=== PATIENT | female | born 1955 | race Caucasian/White ===

== ENCOUNTER 2017-11-27 16:47 | Emergency (ER) | payer OTHER ==
[2016-09-27 09:13] VITALS: Wt 91.6 kg
[~2017-11-27 16:47] MED LIST: ACE325 PO; AMO500 PO; AMOX-559 PO; AMOX1TAB9 PO; ASPI-757 PO; ATOR10TA24 PO; CELE-1 PO; CINN500C12 PO; CIP500 PO; CYCL10TA29 PO; DAPA5TAB PO; DEXL30CA5 PO; DOCU-202 PO; DOCU-416 PO; DUL20 PO; DULO30CA35 PO; ESOM40CA42 PO; FLUC150T40 PO; FLUT16SP20 NS; GABA-488 PO; GABA-547 PO; GABA-549 PO; GLIM4TAB49 PO; HCTZ25 PO; HYDR-2966 PO; HYDR-6015 PO; IBU800 PO; LEV500 PO; LEVO-85 PO; LEVO50TA80 PO; LOR5/325 PO; MAGN500C10 PO; MELO7.5O3 PO; METF-410 PO; METF-420 PO; METFORMIN PO; METR-1 PO; METR-159 PO; MULT-1097 PO; OXYB5TAB86 PO; OXYC-865 PO; PANT40TA63 PO; PER PO; POLY17PO25 PO; PRE10 PO; PRE50 PO; SAXA1TBM6 PO; SIMV10TA98 PO; VALA100062 PO; WAR5 PO
--- NOTE | 2017-11-27 16:50 | ER Report ---
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 She reports she was sent over by her chiropractor who has been working on her right shoulder. Denies prior muscle spasms. Denies prior heart attacks. She reports history of high cholesterol controlled by medication. REVIEW OF SYSTEMS: Constitutional: No fever, no chills. Eyes: No discharge. ENT: No sore throat. Cardiovascular: No chest pain, no palpitations. Respiratory: No cough, no shortness of breath. Gastrointestinal: No abdominal pain, no vomiting. Genitourinary: No hematuria. Musculoskeletal: No back pain. Skin: No rashes. Neurological: No headache. (REBECA JOHNSON MD) Allergies: Coded Allergies: latex (Verified Allergy, Unknown, 09/19/16) PT STATES THAT NO LONGER A PROBLEM Home Meds Active Scripts Naproxen (NAPROXEN) 375 Mg Tablet, 375 MG PO TID for PAIN, #20 TAB 0 Refills Prov:HOWARD BENSON MD 11/27/17 Methocarbamol (ROBAXIN-750) 750 Mg Tablet, 1500 MG PO TID for Muscle Relaxant, # 20 TAB 0 Refills Prov:HOWARD BENSON MD 11/27/17 Reported Medications Oxycodone Hcl/Acetaminophen (PERCOCET 5-325 MG TABLET) 1 Each Tablet, 1-2 EACH PO Q6H Y for PAIN, #60 TAB 09/29/16 Dapagliflozin Propanediol (Farxiga) 5 Mg Tablet, PO DAILY 09/19/16 Duloxetine Hcl (CYMBALTA) 30 Mg Capsule.dr, 30 MG PO QDAY, CAP 06/14/16 Atorvastatin Calcium (LIPITOR) 10 Mg Tablet, 1 TAB PO QDAY, TAB 06/14/16 Metformin Hcl (METFORMIN HCL) 500 Mg Tablet, 2 TAB PO BID, TAB 06/14/16 Gabapentin (GABAPENTIN) 300 Mg Capsule, 300 MG PO DAILY Y for PAIN, CAPSULE 06/14/16 Polyethylene Glycol 3350 (MIRALAX) 17 Gm Powd.pack, 17 GM PO PRN Y for CONSTIPATION, PKT 06/14/16 Dexlansoprazole (DEXILANT) 30 Mg , 60 MG PO DAILY 03/12/15 Hydrochlorothiazide (HYDROCHLOROTHIAZIDE) 25 Mg Tablet, 1 TAB PO QDAY TAKE ONE TABLET BY MOUTH EVERY DAY 09/30/14 Levothyroxine Sodium (Levothyroxine Sodium) 50 Mcg Tablet, 50 MCG PO QAM, 0 Refills 08/10/11 Discontinued Reported Medications Multivitamin (ONE DAILY) 1 Each Tablet, 1 EACH PO QDAY 05/13/15 Discontinued Scripts Aspirin (ASPIRIN) 325 Mg Tablet, 325 MG PO QDAY, #30 TAB Prov:MALVIN DAVID MD 09/29/16 Hx Smoking: No Smoking Status: Never Smoker Hx Substance Use Disorder: No Hx Alcohol Use: Yes (REBECA JOHNSON MD) Constitutional Vital Sign - Last 24 Hours 11/27/17 11/27/17 11/27/17 11/27/17 16:47 16:50 16:51 16:52 Temp 99.5 Pulse ??? 98 Resp 14 B/P (MAP) 136/100 (112) 127/88 (101) 127/88 Pulse Ox 97 O2 Delivery Room Air 11/27/17 11/27/17 11/27/17 11/27/17 17:02 17:17 17:32 17:47 Pulse 69 68 68 70 Resp 20 9 17 Pulse Ox 91 91 94 97 11/27/17 11/27/17 11/27/17 18:02 18:08 18:15 Pulse ??? Resp 18 B/P (MAP) 106/76 (86) Pulse Ox 97 O2 Flow Rate 2.0 (HOWARD BENSON MD) Physical Exam General Appearance: The patient is alert, has no immediate need for airway protection and no signs of toxicity. No acute distress Eyes: Pupils equal and round no pallor or injection. ENT, Mouth: Mucous membranes are moist. Respiratory: There are no retractions, lungs are clear to auscultation. Cardiovascular: Regular rate and rhythm. [ ] Gastrointestinal: Abdomen is soft and non tender, no masses, bowel sounds normal. Neurological: Normal Skin: Warm and dry, no rashes. Musculoskeletal: Neck is supple non tender. Extremities are nontender, nonswollen and have full range of motion. Tender and spasm in left deltoid muscle and left supraspinatus muscle and left splenis capitis muscle minimally tender to palpation DIFFERENTIAL DIAGNOSIS: After history and physical exam differential diagnosis was considered for acute coronary syndrome, muscle spasm no signs of PE dissection or other dangerous pathology (REBECA JOHNSON MD) Medical Decision Making Data Points Result Diagram: 11/27/17 1659 11/27/17 1659 Laboratory Hematology Test 11/27/17 16:59 Red Blood Count 5.57 M/uL (4.17-5.56) Mean Corpuscular Volume 86.2 fL (80.0-96.0) Mean Corpuscular Hemoglobin 30.2 pg (26.0-33.0) Mean Corpuscular Hemoglobin Concent 35.1 g/dL (32.0-36.0) Red Cell Distribution Width 13.5 % (11.5-14.5) Mean Platelet Volume 9.7 fL (7.2-11.1) Neutrophils (%) (Auto) 57.9 % (39.4-72.5) Lymphocytes (%) (Auto) 32.0 % (17.6-49.6) Monocytes (%) (Auto) 7.6 % (4.1-12.4) Eosinophils (%) (Auto) 1.4 % (0.4-6.7) Basophils (%) (Auto) 1.1 % (0.3-1.4) Nucleated RBC Relative Count (auto) 0.0 /100WBC Neutrophils # (Auto) 3.8 K/uL (2.0-7.4) Lymphocytes # (Auto) 2.1 K/uL (1.3-3.6) Monocytes # (Auto) 0.5 K/uL (0.3-1.0) Eosinophils # (Auto) 0.1 K/uL (0.0-0.5) Basophils # (Auto) 0.1 K/uL (0.0-0.1) Nucleated RBC Absolute Count (auto) 0.00 K/uL Sodium Level 136 mmol/L (137-145) Potassium Level 3.3 mmol/L (3.5-5.0) Chloride Level 98 mmol/L (98-107) Carbon Dioxide Level 26 mmol/L (22-31) Blood Urea Nitrogen 20 mg/dl (7-18) Creatinine 0.70 mg/dl (0.52-1.04) Glomerular Filtration Rate Calc > 60.0 Random Glucose 159 mg/dl (75-110) Calcium Level 9.7 mg/dl (8.4-10.2) Total Bilirubin 0.8 mg/dl (0.2-1.3) Aspartate Amino Transf (AST/SGOT) 21 U/L (0-35) Alanine Aminotransferase (ALT/SGPT) 28 U/L (0-56) Alkaline Phosphatase 91 U/L (0-126) Troponin I < 0.012 ng/ml B-Type Natriuretic Peptide < 5 pg/ml (0-100) Total Protein 7.8 gm/dl (6.3-8.2) Albumin 4.1 g/dl (3.5-5.0) Chemistry Test 11/27/17 16:59 White Blood Count 6.5 k/uL (4.5-11.0) Red Blood Count 5.57 M/uL (4.17-5.56) Hemoglobin 16.8 g/dL (12.0-16.0) Hematocrit 48.0 % (34.0-47.0) Mean Corpuscular Volume 86.2 fL (80.0-96.0) Mean Corpuscular Hemoglobin 30.2 pg (26.0-33.0) Mean Corpuscular Hemoglobin Concent 35.1 g/dL (32.0-36.0) Red Cell Distribution Width 13.5 % (11.5-14.5) Platelet Count 195 K/uL (150-450) Mean Platelet Volume 9.7 fL (7.2-11.1) Neutrophils (%) (Auto) 57.9 % (39.4-72.5) Lymphocytes (%) (Auto) 32.0 % (17.6-49.6) Monocytes (%) (Auto) 7.6 % (4.1-12.4) Eosinophils (%) (Auto) 1.4 % (0.4-6.7) Basophils (%) (Auto) 1.1 % (0.3-1.4) Nucleated RBC Relative Count (auto) 0.0 /100WBC Neutrophils # (Auto) 3.8 K/uL (2.0-7.4) Lymphocytes # (Auto) 2.1 K/uL (1.3-3.6) Monocytes # (Auto) 0.5 K/uL (0.3-1.0) Eosinophils # (Auto) 0.1 K/uL (0.0-0.5) Basophils # (Auto) 0.1 K/uL (0.0-0.1) Nucleated RBC Absolute Count (auto) 0.00 K/uL Glomerular Filtration Rate Calc > 60.0 Calcium Level 9.7 mg/dl (8.4-10.2) Total Bilirubin 0.8 mg/dl (0.2-1.3) Aspartate Amino Transf (AST/SGOT) 21 U/L (0-35) Alanine Aminotransferase (ALT/SGPT) 28 U/L (0-56) Alkaline Phosphatase 91 U/L (0-126) Troponin I < 0.012 ng/ml B-Type Natriuretic Peptide < 5 pg/ml (0-100) Total Protein 7.8 gm/dl (6.3-8.2) Albumin 4.1 g/dl (3.5-5.0) (HOWARD BENSON MD) EKG/Imaging EKG Interpretation EKG 11/28/2015 55 my read normal sinus rhythm ventricular rate of [address] QRS and QTc intervals computer reads inferior infarct age undetermined. No ST or T-wave changes to suggest acute ischemia. Of note she has inverted T waves in lead III only. (REBECA JOHNSON MD) ED Course/Re-evaluation ED Course Patient signed out at 1800; patient with muscular skeletal pain given age and some risk factors a cardiac work up was done EKG appears unremarkable. Initial troponin was negative. Patient is scheduled for repeat troponin at 7 PM. Re-evaluation 11/27/2017 7:41:26 pm repeat troponin negative. We'll discharge home Decision to Disposition Date: Nov 27, 2017 Decision to Disposition Time: 20:15 (HOWARD BENSON MD) Depart Departure Latest Vital Signs Vital Signs Date Time Temp Pulse Resp B/P (MAP) Pulse Ox O2 Delivery O2 Flow Rate FiO2 11/27/17 18:15 2.0 11/27/17 18:08 106/76 (86) 11/27/17 18:02 ??? 18 97 11/27/17 16:52 99.5 Room Air (HOWARD BENSON MD) Impression: Primary Impression: Shoulder pain, acute Condition: Improved Disposition: HOME OR SELF-CARE Referrals: AVRIL HAGEN DO (PCP) 1 Week if symptoms persist New Scripts Naproxen (NAPROXEN) 375 Mg Tablet 375 MG PO TID for PAIN, #20 TAB 0 Refills Prov: HOWARD BENSON MD 11/27/17 Methocarbamol (ROBAXIN-750) 750 Mg Tablet 1500 MG PO TID for Muscle Relaxant, #20 TAB 0 Refills Prov: HOWARD BENSON MD 11/27/17 Patient Instructions: Shoulder Pain (ED) Problem Qualifiers Primary Impression: Shoulder pain, acute Laterality: right Qualified Codes: M25.511 - Pain in right shoulder REBECA JOHNSON MD Nov 27, 2017 16:50 HOWARD BENSON MD Nov 27, 2017 19:12
[2017-11-27] MEDS ORDERED: DIAZEPAM 10 MG/2 ML SYR IVP ONE (17:05)
[2017-11-27] MEDS ORDERED: ASPIRIN 81 MG CHEW PO ONE (17:05)
[2017-11-27] MEDS ORDERED: NS(*) 0.9% 1000 ML BAG 1,000 ML IV ONE (17:05)
[2017-11-27 17:09] LABS: PLATELET COUNT, AUTOMATED 195 K/uL (150-450)
[2017-11-27] MEDS ORDERED: LORazepam 2 MG/ML VIAL IVP ONE (17:10)
[2017-11-27] MEDS ORDERED: CYCLOBENZAPRINE HCL 10 MG TAB PO ONE (17:10)
[2017-11-27] MEDS ORDERED: METOCLOPRAMIDE 10 MG/2 ML SDV IVP ONE (17:20)
[2017-11-27] MEDS ORDERED: diphenhydrAMINE 50 MG/ML VIAL IVP ONE (17:20)
--- NOTE | 2017-11-27 17:31 | RADIOLOGY IMAGING REPORT ---
FACILITY: [facility] - [place] PATIENT NAME: Chrissie Mena : 1955 MR: [id number] V: [id number] EXAM DATE: ORDERING PHYSICIAN: REBECA JOHNSON TECHNOLOGIST: [facility] Patient: Chrissie Mena : 1955 Visit/Account:[id number] Date of Sevice: 11/27/2017 Exam type: CHEST SINGLE AP History: wheezing, dyspnea; for edema Comparison: May 31, 2016. Findings: The lungs are free of acute effusions, infiltrates or edema. There is no evidence of pneumothorax or pneumomediastinum. Cardiac silhouette is normal in size. The trachea is in midline. IMPRESSION: 1. No acute cardiac pulmonary process seen Report Dictated By: Lillie Montiel MD at 11/27/2017 5:22 PM Report E-Signed By: Lillie Montiel MD at 11/27/2017 5:25 PM WSN:[id number]
--- NOTE | 2017-11-27 18:00 | EKG ---
FACILITY: [facility] [place] PATIENT NAME: NE PARNELL : [id number] MR: [id number] V: [id number] EXAM DATE: ORDERING PHYSICIAN: REBECA JOHNSON TECHNOLOGIST: CRISTINE Reeves Reason : ARM PAIN Blood Pressure : / mmHG Vent. Rate : 075 BPM Atrial Rate : 075 BPM P-R Int : 152 ms QRS Dur : 086 ms QT Int : 388 ms P-R-T Axes : 046 004 009 degrees QTc Int : 433 ms Normal sinus rhythm Inferior infarct , age undetermined Abnormal ECG When compared with ECG of 25-SEP-2016 16:30, Inferior infarct is now present Confirmed by DAYTON POLLOCK ([id number]) on 11/28/2017 7:08:01 AM Referred By: ELIZABETH Confirmed By:DAYTON POLLOCK
[2017-11-27] MEDS ORDERED: METH-543 PO (19:43)
[2017-11-27] MEDS ORDERED: NAPR375T44 PO (19:43)
== END 2017-11-27 19:45 | disposition home or self-care (01) ==
LOC: ER 16:57
DX: M25.512 Pain in left shoulder (principal); R94.31 Abnormal electrocardiogram [ECG] [EKG]
CPT/HCPCS: 71045; 83880; 84484; 85025; 93005; 96361; 96374; 96375; 99284; J1200; J2060; J2765; J7030; 82040; 82247; 82310; 82374; 82435; 82565; 82947; 84075; 84132; 84155; 84295; 84450; 84460; 84520

== ENCOUNTER → 2018-09-12 | Outpatient (CLI) | payer OTHER ==
[2016-09-27 09:13] VITALS: BMI 34.6
[~2018-09-12] MED LIST changes: -METF-410 PO; +METF-450 PO; +METH-543 PO; -METR-159 PO; +METR250T8 PO; -MULT-1097 PO; +MULT-1540 PO; +NAPR375T44 PO
--- NOTE | 2018-09-13 08:31 | RADIOLOGY IMAGING REPORT ---
FACILITY: [facility] - [place] PATIENT NAME: NE PARNELL : [id number] MR: [id number] V: [id number] EXAM DATE: ORDERING PHYSICIAN: AVRIL HAGEN TECHNOLOGIST: Alisa Moore PROCEDURE:BILATERAL DIGITAL SCREENING MAMMOGRAM WITH CAD ASSISTED INTERPRETATION & 3D TOMOSYNTHESIS COMPARISON:Prior mammograms dated 06/28/17, 04/07/16, 07/28/15, 07/17/14, 07/02/13, 05/01/12 INDICATIONS:screening FINDINGS: The breasts are almost entirely fatty. The parenchymal pattern has remained stable allowing for difference in mammographic technique & patient positioning. DIAGNOSTIC CATEGORY 1--NEGATIVE. RECOMMENDATIONS: ROUTINE MAMMOGRAM AND CLINICAL EVALUATION. IMPRESSION: BIRADS 1: Negative. No significant abnormality is seen. Dictated by: Lillie Montiel M.D. on 09/12/2018 at 10:03 Transcribed by: DOMINIK on 09/12/2018 at 13:50 Approved by: Lillie Montiel M.D. on 09/13/2018 at 8:29 [facility]
== END ==
LOC: MAMO 00:52
PROVIDERS: ATTEND Family Medicine
DX: Z12.31 Encounter for screening mammogram for malignant neoplasm of breast (principal)
CPT/HCPCS: 77063; 77067

== ENCOUNTER 2018-11-23 16:49 | Emergency (ER) | payer OTHER ==
[2016-09-27 09:13] VITALS: Wt 91.7 kg
--- NOTE | 2018-11-23 17:09 | ER Report ---
History and Physical Time Seen By MD: 18:26 (KARSTEN KEEN DO) HPI/ROS CHIEF COMPLAINT: Fall HISTORY OF PRESENT ILLNESS: Patient is a 62-year-old female here status post fall while at a gas station. Patient reportedly has had episodes of lightheadedness recently and notes that she had mild chest pains yesterday which spontaneously resolved. Patient reports having mild neck tenderness, lower back pain. Patient is neurovascularly intact, alert and oriented. Denies fevers, chills, chest pain, shortness breath at this time. REVIEW OF SYSTEMS: Constitutional: No fever, no chills. Eyes: No discharge. ENT: No sore throat. Cardiovascular: No chest pain, no palpitations. Respiratory: No cough, no shortness of breath. Gastrointestinal: No abdominal pain, no vomiting. Genitourinary: No hematuria. Musculoskeletal: + Lumbar back pain Skin: No rashes. Neurological: No focal neurological deficits (KARSTEN KEEN DO) Allergies: Coded Allergies: latex (Verified Allergy, Unknown, 09/19/16) PT STATES THAT NO LONGER A PROBLEM Home Meds Active Scripts Hydrocodone Bit/Acetaminophen (HYDROCODON-ACETAMINOPHEN 5-325) 1 Each Tablet, 1 EACH PO Q4H PRN for PAIN, #12 TAB 0 Refills Prov:ALFREDO WHITFIELD MD 11/23/18 Reported Medications Dapagliflozin Propanediol (Farxiga) 5 Mg Tablet, PO DAILY 09/19/16 Duloxetine Hcl (CYMBALTA) 30 Mg Capsule.dr, 30 MG PO QDAY, CAP 06/14/16 Atorvastatin Calcium (LIPITOR) 10 Mg Tablet, 1 TAB PO QDAY, TAB 06/14/16 Metformin Hcl (METFORMIN HCL) 500 Mg Tablet, 2 TAB PO BID, TAB 06/14/16 Gabapentin (GABAPENTIN) 300 Mg Capsule, 300 MG PO DAILY PRN for PAIN, CAPSULE 06/14/16 Polyethylene Glycol 3350 (MIRALAX) 17 Gm Powd.pack, 17 GM PO PRN PRN for CONSTIPATION, PKT 06/14/16 Dexlansoprazole (DEXILANT) 30 Mg Wes., 60 MG PO DAILY 03/12/15 Hydrochlorothiazide (HYDROCHLOROTHIAZIDE) 25 Mg Tablet, 1 TAB PO QDAY TAKE ONE TABLET BY MOUTH EVERY DAY 09/30/14 Levothyroxine Sodium (Levothyroxine Sodium) 50 Mcg Tablet, 50 MCG PO QAM, 0 Refills 08/10/11 Discontinued Reported Medications Oxycodone Hcl/Acetaminophen (PERCOCET 5-325 MG TABLET) 1 Each Tablet, 1-2 EACH PO Q6H PRN for PAIN, #60 TAB 09/29/16 Discontinued Scripts Naproxen (NAPROXEN) 375 Mg Tablet, 375 MG PO TID for PAIN, #20 TAB 0 Refills Prov:HOWARD BENSON MD 11/27/17 Methocarbamol (ROBAXIN-750) 750 Mg Tablet, 1500 MG PO TID for Muscle Relaxant, #20 TAB 0 Refills Prov:HOWARD BENSON MD 11/27/17 Hx Smoking: No Smoking Status: Never Smoker Hx Substance Use Disorder: No Hx Alcohol Use: Yes (KARSTEN KEEN DO) Constitutional Vital Sign - Last 24 Hours 11/23/18 11/23/18 11/23/18 11/23/18 17:19 17:20 17:26 17:26 Temp 98.0 Pulse 75 68 Resp 20 B/P (MAP) 141/76 (97) 141/76 Pulse Ox 90 87 O2 Delivery Room Air O2 Flow Rate 1.0 11/23/18 11/23/18 11/23/18 11/23/18 17:30 17:34 17:49 17:49 Pulse 63 61 Resp 14 20 B/P (MAP) 120/81 (94) Pulse Ox 93 91 O2 Flow Rate 1.0 11/23/18 11/23/18 11/23/18 11/23/18 18:04 18:47 18:52 19:00 Pulse 58 62 Resp 11 21 B/P (MAP) 138/75 (96) 135/81 (99) Pulse Ox 94 95 11/23/18 11/23/18 11/23/18 11/23/18 19:07 19:22 19:30 19:37 Pulse 62 61 64 Resp 18 9 11 B/P (MAP) 126/75 (92) Pulse Ox 94 94 93 11/23/18 20:10 B/P (MAP) 120/67 (84) (ALFREDO WHITFIELD MD) Physical Exam General Appearance: The patient is alert, has no immediate need for airway protection and no signs of toxicity. No acute distress Eyes: Pupils equal and round no pallor or injection. ENT, Mouth: Mucous membranes are moist. Respiratory: There are no retractions, lungs are clear to auscultation. Cardiovascular: Regular rate and rhythm. [ ] Gastrointestinal: Abdomen is soft and non tender, no masses, bowel sounds normal. Neurological: No focal neurological findings Skin: Warm and dry, no rashes. Musculoskeletal: Neck is supple + mildly tender on range of motion testing tender.+ Lower lumbar back pain Extremities are nontender, nonswollen and have full range of motion. [ ] DIFFERENTIAL DIAGNOSIS: After history and physical exam differential diagnosis was considered for contusion, abrasion, electrolyte abnormality, dehydration, infection, pulmonary embolus (KARSTEN KEEN DO) Medical Decision Making Data Points Result Diagram: 11/23/18 1746 11/23/18 1746 Laboratory Hematology Test 11/23/18 17:46 Red Blood Count 5.26 M/uL (4.17-5.56) Mean Corpuscular Volume 87.0 fL (80.0-96.0) Mean Corpuscular Hemoglobin 30.1 pg (26.0-33.0) Mean Corpuscular Hemoglobin Concent 34.6 g/dL (32.0-36.0) Red Cell Distribution Width 13.4 % (11.5-14.5) Mean Platelet Volume 9.5 fL (7.2-11.1) Neutrophils (%) (Auto) 54.3 % (39.4-72.5) Lymphocytes (%) (Auto) 34.7 % (17.6-49.6) Monocytes (%) (Auto) 8.2 % (4.1-12.4) Eosinophils (%) (Auto) 1.4 % (0.4-6.7) Basophils (%) (Auto) 1.4 % (0.3-1.4) Nucleated RBC Relative Count (auto) 0.1 /100WBC Neutrophils # (Auto) 3.0 K/uL (2.0-7.4) Lymphocytes # (Auto) 1.9 K/uL (1.3-3.6) Monocytes # (Auto) 0.5 K/uL (0.3-1.0) Eosinophils # (Auto) 0.1 K/uL (0.0-0.5) Basophils # (Auto) 0.1 K/uL (0.0-0.1) Nucleated RBC Absolute Count (auto) 0.00 K/uL D-Dimer Quantitative (PE/DVT) 0.36 ug/ml (0-0.50) Sodium Level 138 mmol/L (137-145) Potassium Level 3.8 mmol/L (3.5-5.0) Chloride Level 101 mmol/L (98-107) Carbon Dioxide Level 27 mmol/L (22-31) Blood Urea Nitrogen 18 mg/dl (7-18) Creatinine 0.60 mg/dl (0.52-1.04) Glomerular Filtration Rate Calc > 60.0 Random Glucose 124 mg/dl (75-110) Calcium Level 9.9 mg/dl (8.4-10.2) Total Bilirubin 0.5 mg/dl (0.2-1.3) Aspartate Amino Transf (AST/SGOT) 23 U/L (0-35) Alanine Aminotransferase (ALT/SGPT) 28 U/L (0-56) Alkaline Phosphatase 96 U/L (0-126) Troponin I < 0.012 ng/ml B-Type Natriuretic Peptide 19 pg/ml (0-100) Total Protein 7.8 g/dl (6.3-8.2) Albumin 4.5 g/dl (3.5-5.0) Chemistry Test 11/23/18 17:46 White Blood Count 5.5 k/uL (4.5-11.0) Red Blood Count 5.26 M/uL (4.17-5.56) Hemoglobin 15.8 g/dL (12.0-16.0) Hematocrit 45.8 % (34.0-47.0) Mean Corpuscular Volume 87.0 fL (80.0-96.0) Mean Corpuscular Hemoglobin 30.1 pg (26.0-33.0) Mean Corpuscular Hemoglobin Concent 34.6 g/dL (32.0-36.0) Red Cell Distribution Width 13.4 % (11.5-14.5) Platelet Count 212 K/uL (150-450) Mean Platelet Volume 9.5 fL (7.2-11.1) Neutrophils (%) (Auto) 54.3 % (39.4-72.5) Lymphocytes (%) (Auto) 34.7 % (17.6-49.6) Monocytes (%) (Auto) 8.2 % (4.1-12.4) Eosinophils (%) (Auto) 1.4 % (0.4-6.7) Basophils (%) (Auto) 1.4 % (0.3-1.4) Nucleated RBC Relative Count (auto) 0.1 /100WBC Neutrophils # (Auto) 3.0 K/uL (2.0-7.4) Lymphocytes # (Auto) 1.9 K/uL (1.3-3.6) Monocytes # (Auto) 0.5 K/uL (0.3-1.0) Eosinophils # (Auto) 0.1 K/uL (0.0-0.5) Basophils # (Auto) 0.1 K/uL (0.0-0.1) Nucleated RBC Absolute Count (auto) 0.00 K/uL D-Dimer Quantitative (PE/DVT) 0.36 ug/ml (0-0.50) Glomerular Filtration Rate Calc > 60.0 Calcium Level 9.9 mg/dl (8.4-10.2) Total Bilirubin 0.5 mg/dl (0.2-1.3) Aspartate Amino Transf (AST/SGOT) 23 U/L (0-35) Alanine Aminotransferase (ALT/SGPT) 28 U/L (0-56) Alkaline Phosphatase 96 U/L (0-126) Troponin I < 0.012 ng/ml B-Type Natriuretic Peptide 19 pg/ml (0-100) Total Protein 7.8 g/dl (6.3-8.2) Albumin 4.5 g/dl (3.5-5.0) Coagulation Test 11/23/18 17:46 D-Dimer Quantitative (PE/DVT) 0.36 ug/ml ([facility]) EKG/Imaging EKG Interpretation 12 lead EKG: Sinus bradycardia, ventricular rate 59, QTC 425, no ischemic changes or arrhythmias identified on EKG Rhythm: Sinus bradycardia [place]: normal QRS: normal ST segments: normal (KEEN,KARSTEN S DO) Imaging CT Head without contrast and CT Cervical spine: Indication: Fall. Comparison: None available Technique: CT head: Axial CT images were obtained through the brain from the skull base to the vertex without administration of IV contrast. Reformatted coronal and sagittal images were also obtained. Technique: CT cervical spine: Axial CT imaging of the cervical spine was performed. 2-D sagittal and coronal CT reformats were also obtained. One of the following dose optimization techniques was utilized in the p erformance of this exam: Automated exposure control; adjustment of the mA and/or kV according to the patient's size; or use of an iterative reconstruction technique. Specific details can be referenced in the facility's radiology CT exam operational policy. FINDINGS: CT head: No intracranial bleed, midline shift, mass effect, extra-axial fluid collection or hydrocephalus. No abnormal density. Spencer/white matter differentiation appears normal. Bony structures show no fractures or lesions. The sinuses and mastoids visualized are clear. CT cervical spine: The vertebral bodies are aligned. No fracture or facet dislocation. No aggressive bony lesions. There is rjgl-ey-[id number] degenerative changes at the C5-6 level including disc space narrowing, endplate changes, osteophytes and facet arthropathy. No bony canal stenosis. Mild bilateral neural foramina narrowing. No other significant degenerative changes. Endplates are maintained. No obvious disc herniation. The prevertebral soft tissues and surrounding soft tissues are unremarkable. Lung apices are clear. IMPRESSION: 1. No acute intracranial abnormality. No skull fracture. 2. No acute osseous or acute alignment abnormality of the cervical spine. Degenerative changes at C5-C6 Report Dictated By: Michael Miller at 11/23/2018 7:12 PM Technique: CHEST PA LAT HISTORY: RESP DISTRESS Comparison studies: Chest radiograph May 31, 2016 FINDINGS: No acute airspace consolidation. No pleural effusion. The cardiac silhouette is unchanged. IMPRESSION: 1. No acute cardiopulmonary process. Report Dictated By: Malick Canales DO at 11/23/2018 7:04 PM Technique: L-SPINE 2 OR 3 VIEW HISTORY: fall Comparison studies: Lumbar spine radiographs March 27, 2014 FINDINGS: There is no acute fracture. Multilevel degenerative changes are noted within the lumbar spine including intervertebral disc space narrowing and endpl ate osteophytosis. These findings are most conspicuous at L2-L3. There is 2 mm retrolisthesis of L2 on L3. Facets uropathy seen at the lumbosacral junction. IMPRESSION: 1. Degenerative findings as above. Report Dictated By: Malick Canales DO at 11/23/2018 7:06 PM (ELLYALFREDO ARCINIEGA MD) ED Course/Re-evaluation ED Course Patient is a 62-year-old female here status post fall out of a gas station. Patient was initially noted to be 90% on room air prompting d-dimer which is negative. Patient also reportedly had chest pain yesterday so troponin was col lected and was negative, EKG showed no arrhythmias or ischemic findings. CT imaging of the head and C-spine, x-ray imaging of the chest, lumbar was completed. Patient was given normal saline bolus for hydration. Patient was signed out to Dr. Whitfield at shift change pending completion of imaging scans. Decision to Disposition Date: Nov 23, 2018 Decision to Disposition Time: 18:00 (KARSTEN KEEN DO) ED Course I discussed this patient with Dr. Keen at shift change and assumed care of the patient. This is a 62-year-old female with dizziness and fall. Currently awaiting imaging. CT scans reviewed and negative for acute abnormalities, but do show degenerative changes. Reviewed the findings with her and with family. she will follow-up with her PCP Dr. Winters next week. Ibuprofen and Lortab as needed for pain. Rest and increase fluids, taking time when getting up and around. Decision to Disposition Date: Nov 23, 2018 Decision to Disposition Time: 20:06 (ALFREDO WHITFIELD MD) Depart Departure Latest Vital Signs Vital Signs Date Time Temp Pulse Resp B/P (MAP) Pulse Ox O2 Delivery O2 Flow Rate FiO2 11/23/18 20:10 120/67 (84) 11/23/18 19:37 64 11 93 11/23/18 17:49 1.0 11/23/18 17:26 98.0 Room Air (ALFREDO WHITFIELD MD) Impression: Primary Impression: Fall Additional Impressions: Dizziness Cervical strain, acute Condition: Improved Disposition: HOME OR SELF-CARE Referrals: AVRIL WINTERS DO (PCP) New Scripts Hydrocodone Bit/Acetaminophen (HYDROCODON-ACETAMINOPHEN 5-325) 1 Each Tablet 1 EACH PO Q4H PRN for PAIN, #12 TAB 0 Refills Prov: ALFREDO WHITFIELD MD 11/23/18 Patient Instructions: Cervical Strain (ED), Dizziness (ED) Additional Instructions: Rest and increase fluid intake for the next few days. Take your time when getting up and around. Follow-up with Dr. Winters next week. Take Ibuprofen 200mg over the counter tablets, 4 tablets every 8 hours as needed for pain. Take Lortab 5/325, one every 4 hours as needed for severe pain. Problem Qualifiers Primary Impression: Fall Encounter type: initial encounter Qualified Codes: W19.XXXA - Unspecified fall, initial encounter Additional Impressions: Cervical strain, acute Encounter type: initial encounter Qualified Codes: S16.1XXA - Strain of muscle, fascia and tendon at neck level, initial encounter KARSTEN KEEN DO Nov 23, 2018 17:09 [facility] Nov 23, 2018 19:16
[2018-11-23] MEDS ORDERED: NS(*) 0.9% 1000 ML BAG 1,000 ML IV ONE (17:28)
[2018-11-23 17:55] LABS: PLATELET COUNT, AUTOMATED 212 K/uL (150-450)
[2018-11-23] MEDS ORDERED: DIPHTH/TETANUS/ACEL. PERTUSSIS IM ONLY ONE (18:40)
--- NOTE | 2018-11-23 19:09 | RADIOLOGY IMAGING REPORT ---
FACILITY: [facility] - [place] PATIENT NAME: Chrissie Mena : 1955 MR: [id number] V: [id number] EXAM DATE: ORDERING PHYSICIAN: KARSTEN CHAIDEZ TECHNOLOGIST: Location: [facility] - [place] Patient: Chrissie Mena : 1955 Visit/Account:[id number] Date of Sevice: 11/23/2018 Technique: CHEST PA LAT HISTORY: RESP DISTRESS Comparison studies: Chest radiograph May 31, 2016 FINDINGS: No acute airspace consolidation. No pleural effusion. The cardiac silhouette is unchanged. IMPRESSION: 1. No acute cardiopulmonary process. Report Dictated By: Malick Canales DO at 11/23/2018 7:04 PM Report E-Signed By: Malick Canales DO at 11/23/2018 7:06 PM WSN:[id number]
--- NOTE | 2018-11-23 19:11 | RADIOLOGY IMAGING REPORT ---
FACILITY: [facility] PATIENT NAME: Chrissie Mena : 1955 MR: [id number] V: [id number] EXAM DATE: ORDERING PHYSICIAN: KARSTEN CHAIDEZ TECHNOLOGIST: [place] [facility] [place]: Chrissie Mena : 1955 Visit/Account:[id number] Date of Sevice: 11/23/2018 Technique: L-SPINE 2 OR 3 VIEW HISTORY: fall Comparison studies: Lumbar spine radiographs March 27, 2014 FINDINGS: There is no acute fracture. Multilevel degenerative changes are noted within the lumbar spi ne including intervertebral disc space narrowing and endplate osteophytosis. These findings are most conspicuous at L2-L3. There is 2 mm retrolisthesis of L2 on L3. Facets uropathy seen at the lumbosacr al junction. IMPRESSION: 1. Degenerative findings as above. Report Dictated By: Malick Canales DO at 11/23/2018 7:06 PM Report E-Signed By: Malick Canales DO at 11/23/2018 7:07 PM WSN:[id number]
--- NOTE | 2018-11-23 19:24 | RADIOLOGY IMAGING REPORT ---
FACILITY: [facility] - [place] PATIENT NAME: Chrissie Mena : 1955 MR: [id number] V: [id number] EXAM DATE: ORDERING PHYSICIAN: KARSTEN CHAIDEZ TECHNOLOGIST: Location: [facility] Patient: Chrissie Mena : 1955 Visit/Account:[id number] Date of Sevice: 11/23/2018 CT Head without contrast and CT Cervical spine: Indication: Fall. Comparison: None available Technique: CT head: Axial CT images were obtained through the brain from the skull base to the verte x without administration of IV contrast. Reformatted coronal and sagittal images were also obtained. Technique: CT cervical spine: Axial CT imaging of the cervical spine was performed. 2-D sagittal and coronal CT reformats were also obtained. One of the following dose optimization techniques was utilized in the performance of this exam: Autom ated exposure control; adjustment of the mA and/or kV according to the patient's size; or use of an i terative reconstruction technique. Specific details can be referenced in the facility's radiology C T exam operational policy. FINDINGS: CT head: No intracranial bleed, midline shift, mass effect, extra-axial fluid collection or hydrocephalus. No abnormal density. Spencer/white matter differentiation appears normal. Bony structures show no fractures or lesions. The sinuses and mastoids visualized are clear. CT cervical spine: The vertebral bodies are aligned. No fracture or facet dislocation. No aggressive bony lesions. There is ngbs-cy-pwqojadq degenerative changes at the C5-6 level including disc space narrowing, endplate changes, osteophytes and facet arthropathy. No bony canal stenosis. Mild bilateral neural foramina na rrowing. No other significant degenerative changes. Endplates are maintained. No obvious disc herniat ion. The prevertebral soft tissues and surrounding soft tissues are unremarkable. Lung apices are yasmin ar. IMPRESSION: 1. No acute intracranial abnormality. No skull fracture. 2. No acute osseous or acute alignment abnormality of the cervical spine. Degenerative changes at C5- C6. Report Dictated By: Michael Miller at 11/23/2018 7:12 PM Report E-Signed By: Michael Miller at 11/23/2018 7:20 PM WSN:[id number]
--- NOTE | 2018-11-23 19:25 | RADIOLOGY IMAGING REPORT ---
FACILITY: [facility] PATIENT NAME: Chrissie Mena : 1955 MR: [id number] V: [id number] EXAM DATE: ORDERING PHYSICIAN: KARSTEN CHAIDEZ TECHNOLOGIST: Location: [facility] - [place] Patient: Chrissie Mena : 1955 Visit/Account:[id number] Date of Sevice: 11/23/2018 CT Head without contrast and CT Cervical spine: Indication: Fall. Comparison: None available Technique: CT head: Axial CT images were obtained through the brain from the skull base to the verte x without administration of IV contrast. Reformatted coronal and sagittal images were also obtained. Technique: CT cervical spine: Axial CT imaging of the cervical spine was performed. 2-D sagittal and coronal CT reformats were also obtained. One of the following dose optimization techniques was utilized in the performance of this exam: Autom ated exposure control; adjustment of the mA and/or kV according to the patient's size; or use of an i terative reconstruction technique. Specific details can be referenced in the facility's radiology C T exam operational policy. FINDINGS: CT head: No intracranial bleed, midline shift, mass effect, extra-axial fluid collection or hydrocephalus. No abnormal density. Spencer/white matter differentiation appears normal. Bony structures show no fractures or lesions. The sinuses and mastoids visualized are clear. CT cervical spine: The vertebral bodies are aligned. No fracture or facet dislocation. No aggressive bony lesions. There is woov-yf-fzrkmkki degenerative changes at the C5-6 level including disc space narrowing, endplate changes, osteophytes and facet arthropathy. No bony canal stenosis. Mild bilateral neural foramina na rrowing. No other significant degenerative changes. Endplates are maintained. No obvious disc herniat ion. The prevertebral soft tissues and surrounding soft tissues are unremarkable. Lung apices are yasmin ar. IMPRESSION: 1. No acute intracranial abnormality. No skull fracture. 2. No acute osseous or acute alignment abnormality of the cervical spine. Degenerative changes at C5- C6. Report Dictated By: Michael Miller at 11/23/2018 7:12 PM Report E-Signed By: Michael Miller at 11/23/2018 7:20 PM WSN:[email or web address]
[2018-11-23] MEDS ORDERED: APAP/HYDROCODONE 325/5 TAB PO ONE (20:05)
[2018-11-23] MEDS ORDERED: IBUPROFEN 800 MG TAB PO ONE (20:05)
[2018-11-23] MEDS ORDERED: ACET/HYDROC 5/325MG TH ER ONLY 2 TAB/BOTTLE PO ONE (20:05)
[2018-11-23] MEDS ORDERED: LOR5/325 PO (20:08)
[2018-11-23 20:10] VITALS: BP 120/67
--- NOTE | 2018-11-24 07:02 | EKG ---
FACILITY: [facility] - [place] PATIENT NAME: NE PARNELL : [id number] MR: [id number] V: [id number] EXAM DATE: ORDERING PHYSICIAN: KARSTEN CHAIDEZ TECHNOLOGIST: Test Reason : fall Blood Pressure : / mmHG Vent. Rate : 059 BPM Atrial Rate : 059 BPM P-R Int : 164 ms QRS Dur : 092 ms QT Int : 430 ms P-R-T Axes : 039 010 009 degrees QTc Int : 425 ms Sinus bradycardia Otherwise normal ECG No previous ECGs available Confirmed by Alejandro Fraire ([id number] on 11/24/2018 10:09:36 PM Referred By: Confirmed By:Alejandro Wick
== END 2018-11-23 20:28 | disposition home or self-care (01) ==
LOC: ER 17:10
DX: R42 Dizziness and giddiness (principal); S16.1XXA Strain of muscle, fascia and tendon at neck level, initial encounter
CPT/HCPCS: 70450; 71046; 72100; 72125; 83880; 84484; 85025; 85379; 90471; 90715; 93005; 96360; 99284; J7030; 82040; 82247; 82310; 82374; 82435; 82565; 82947; 84075; 84132; 84155; 84295; 84450; 84460; 84520